=== PATIENT | female | born 1940 | race Caucasian/White ===

== ENCOUNTER 2021-05-24 10:00 | Outpatient (CLI) | payer OTHER, MEDICARE ==
[2021-05-24] MEDS ORDERED: OMNIPAQUE 350 MG/ML, 100ML BOTTLE ONE (11:00)
== END 2021-05-24 23:59 | disposition home or self-care (01) ==
LOC: CFH 10:00
PROVIDERS: ATTEND Surgery
DX: I65.23 Occlusion and stenosis of bilateral carotid arteries (principal)
CPT/HCPCS: 70496; 70498; Q9967